=== PATIENT | female | born 1995 | race Hispanic/Latino ===

== ENCOUNTER 2016-08-23 22:13 | Emergency (ER) | payer MEDICAID ==
[~2016-08-23] VITALS: Ht 157.5 cm; Wt 61.4 kg
[~2016-08-23 22:13] MED LIST: COL100L PO; IBUP-1152 PO; PER5 PO
[2016-08-23 22:33] VITALS: BP 131/93; PULSE 104; RESP 18; O2SAT 99
--- NOTE | 2016-08-23 23:22 | ED.REPORT ---
HPI-Abd Pain F Under 40 Date of Service Aug 23, 2016 ED Provider: Pratik Barone DO A 21 year old female with a history of anxiety and presents to the ED complaining of abdominal pain. The pain began at 19:00 today and is concentrated in the left lower quadrant. The pt denies history of ectopic , but states that this feels like it could be a miscarriage. Her last menstrual period was in 07/2016. Nursing Notes Stated Complaint: ABDOMINAL PAIN Chief Complaint: Female Abdominal Pain Nursing Notes Reviewed: Yes Allergies: Coded Allergies: No Known Allergies (Unverified , 08/23/16) Scheduled Docusate Sod-Expunged Drug, Do Not Renew! (Docusate Sod-Expunged Drug, Do Not Renew!) 10 Mg/1 Ml Liqd 100 MG PO BID Scheduled PRN IBUPROFEN-Expunged Drug, Do Not Renew! (IBUPROFEN-Expunged Drug, Do Not Renew!) 800 Mg Tablet 600 MG PO Q6H PRN PRN Oxycodone/APAP-Expunged Drug, Do Not Renew! (Percocet 5/325-Expunged Drug, Do Not Renew!) 1 Ea Tablet 0 EA PO Q3 PRN PRN General Time Seen by MD: 23:22 Chief Complaint Abdominal pain Hx Obtained From: Patient Arrived By: Walk-in Sudden in Onset?: No Onset Occurred: 5 - 8 hours ago Symptom Duration: Since onset Recent Healthcare: Recent doctor visit, Recent hospitalization Similar Sx Previous: No Past Medical History Past Medical History Anxiety Past Surgical History Reports: Smoking History Never Smoker Social History Alcohol Use: Denies alcohol use Drug Use: Denies drug use Occupation lives by self, children are with the father. . works in house cleaning. Ambulatory Status Independent Review of Systems Constitutional: Denies: Chills, Fever Respiratory: Denies: Non-productive cough, Shortness of breath Cardiovascular: Denies: Chest pain GI: Reports: Abdominal pain Musculoskeletal: Denies: Back pain, Neck pain Complete sys rev & neg: except as marked. Physical Exam Initial Vital Signs Vital Signs (First) Date Time Temp Pulse Resp B/P Pulse Ox O2 Delivery O2 Flow Rate FiO2 08/23/16 22:33 37.1 104 18 131/93 99 Room Air Initial VS: Reviewed General/Constitutional: Awake, Alert moderate distress due to pain Respiratory / Chest: Atraumatic, Breath sounds NL, Breath sounds = bilat, No respiratory distress Cardiovascular: Heart rate NL, Regular rhythm, Heart sounds NL Abdomen: Atraumatic, Soft tender LLQ Back: Atraumatic, Full range of motion Head / Eyes: Atraumatic, Normocephalic, PERRL, EOMI ENT: Atraumatic, Airway patent, Mucous membranes moist Skin: Atraumatic, Color NL, No rash, Warm, Dry Neurologic: Oriented X3, Speech NL, No motor deficits, No sensory deficits Neck: Atraumatic, Supple, Full range of motion Upper Extremity / MS: Atraumatic, Full range of motion Lower Extremity / Pelvis / MS: Atraumatic, Full range of motion Psychiatric: Affect NL, Mood NL Interpretation & Diagnostics Interpretation & Diagnostics: US: no signs of ectopic appears to be early intrauterine gestation Lab Results Interpretation Result Diagram: 08/23/16 2355 08/23/16 2355 Test 08/23/16 23:41 08/23/16 23:45 08/23/16 23:55 08/23/16 23:58 Hold Urine Received (Received) Urine Color Yellow (YELLOW) Urine Appearance Clear (CLEAR,HAZY) Urine pH 6.0 (5.0-8.0) Urine Specific [place] 1.025 (1.003-1.035) Urine Protein Negativemg/dL (NEG,TRACE) Urine Glucose (UA) Negativemg/dL (NEGATIVE) Urine Ketones Negativemg/dL (NEGATIVE) Urine Occult Blood Trace (NEGATIVE) Urine Nitrite Negative (NEGATIVE) Urine Bilirubin Negative (NEGATIVE) Urine Urobilinogen Normalmg/dL (NORMAL) Urine Leukocyte Esterase Trace (NEGATIVE) Urine RBC 0-2/hpf (0-2) Urine WBC 6-10/hpf (0-5) Urine Epithelial Cells Many/hpf (NONE-MOD) Urine Crystals None seen (NONE SEEN) Urine Bacteria Few/hpf (NONE-FEW) Urine Hyaline Casts None/lpf (NONE) Urine Granular Casts None seen (NONE SEEN) Urine Waxy Casts None seen (NONE SEEN) Urine Red Blood Cell Casts None seen (NONE SEEN) Urine White Blood Cell Casts None seen (NONE SEEN) Urine Mucus Present (None Seen) Urine Trichomonas None seen (NONE SEEN) Urine Yeast None (NONE SEEN) Urine Culture Reflexed Indicated White Blood Count 9.3th/mm3 (3.8-10.1) Red Blood Count 4.39mil/mm3 (3.90-5.20) Hemoglobin 13.0g/dL (12.0-15.6) Hematocrit 38.0% (35.0-46.0) Mean Corpuscular Volume 86.6fL (81-100) Mean Corpuscular Hemoglobin 29.6pg (27.0-35.0) Mean Corpuscular Hemoglobin Concent 34.2% (32.0-37.0) Red Cell Distribution Width 13.2% (12.3-15.4) Platelet Count 278bil/L (150-400) Neutrophils (%) (Auto) 63.5% (40-74) Lymphocytes (%) (Auto) 28.3% (14-46) Monocytes (%) (Auto) 7.7% (4-12) Eosinophils (%) (Auto) 0.1% (0-5) Basophils (%) (Auto) 0.2% (0-3) Sodium Level 138mEq/L (134-144) Potassium Level 3.5mEq/L (3.5-5.2) Chloride Level 100mEq/L (97-108) Carbon Dioxide Level 22mmol/L (18-29) Blood Urea Nitrogen 6mg/dL (6-20) Creatinine 0.38mg/dL (0.57-1.00) Estimat Glomerular Filtration Rate 303mL/min (>59) Glucose Level 98mg/dL (60-99) Calcium Level 9.5mg/dL (8.5-10.1) Magnesium Level 2.3mg/dL (1.6-2.6) Total Bilirubin 0.2mg/dL (0.0-1.2) Aspartate Amino Transf (AST/SGOT) 17U/L (0-50) Alanine Aminotransferase (ALT/SGPT) 9U/L (0-32) Alkaline Phosphatase 94U/L (25-150) Total Protein 7.9g/dL (6.4-8.4) Albumin 4.5g/dL (3.4-5.0) Lipase 27U/L (13-60) Hold [place] Top Tube Received (Received) HCG Beta Subunit 1829mIU/mL Pulse Oximetry Interpretation Pulse Oximetry Interpretation: 99% on room air Pulse Oximetry: Pulse Ox normal US FAST Exam did not visualize an intrauterine Exam Performed by: ED physician Re-Eval/Medical Decision Source of Hx: Old records Re-Evaluation/Progress : Time of Eval: :17 Patient Status: Condition improved Re-Evaluation/Progress Note: Pt rechecked, whose pain has improved. She is informed of ultrasound and lab results, diagnosis, and plan for discharge. The pt understands and agrees with the plan. All questions are addressed at this time. Counseled Regarding: Diagnosis, Lab results, Need for follow-up, When/why to return to ED Discharge & Departure Primary Impression: Pelvic pain during Disposition: Home Discharge Condition All VS Reviewed: Yes Condition: Stable Patient Instructions: (ED) Additional Instructions: Take Tylenol as directed for pain. Your ultrasound showed no sign of ectopic . We will culture your urine, so this needs to be followed up. Follow up with Dr. Frank this week. Drink plenty of liquids. Return to the emergency department if you develop any new or worsening symptoms. Referrals: [facility] (PCP) Sandro Frank MD Attestation Portions of this note were transcribed by Maye Patiño I, Dr. Barone personally performed the history, physical exam and medical decision-making; I reviewed and confirmed the accuracy of the information in the transcribed note. Signed by: Ramila Lyn, 08/24/16 and 02:20 copies to: Sandro Frank MD; [facility] Pratik Barone DO Aug 23, 2016 23:22 MAYE PATIÑO Aug 23, 2016 23:33
[2016-08-23] MEDS ORDERED: HYDROmorphone 0.5 mg/0.5 mL iSecure Syringe IVPUSH PRN (23:30)
[2016-08-23] MEDS ORDERED: 0.9% Sodium Chloride 1,000 ML IV ONE (23:30)
[2016-08-24 00:09] LABS: BASOPHILS % (AUTO) 0.2 % (0-3); EOSINOPHILS % (AUTO) 0.1 % (0-5); MONOCYTES % (AUTO) 7.7 % (4-12); Mean Corpuscular Hemoglobin 29.6 pg (27.0-35.0); Mean Corpuscular Volume 86.6 fL (81-100); NEUTROPHILS % (AUTO) 63.5 % (40-74); Platelet Count 278 bil/L (150-400)
[2016-08-24 00:37] LABS: Magnesium 2.3 mg/dL (1.6-2.6)
[2016-08-24 01:15] LABS: APPEARANCE,URINE CLEAR (CLEAR,HAZY); COLOR,URINE YELLOW (YELLOW); OCCULT BLOOD,URINE TRACE (NEGATIVE); UROBILINOGEN,URINE NORMAL (NORMAL)
[2016-08-24 01:29] VITALS: BP 124/84; PULSE 88; RESP 18; O2SAT 99
--- NOTE | 2016-08-24 09:10 | DRSVH ---
PROCEDURE: US PELVIC SONOGRAM + TRANSVAGINAL SONOGRAM INDICATIONS: pelvic pain TECHNIQUE: Real-time scanning was performed of the pelvic organs, with image documentation. Additional endovagi nal scanning was necessary due to incomplete visualization of the adnexal and endometrial structures by transabdominal scanning. COMPARISON: None. FINDINGS: (orthogonal measurements) Uterus size: 8.96 cm, 4.79 cm, 6.15 cm, 9.49 cm, 4.68 cm Endometrium thickness: 1.48 cm Right ovary size: 3.48 cm, 3.97 cm, 2.29 cm, Left ovary size: 2.14 cm, 2.98 cm, 2.07 cm, Transabdominal scanning: Limited scanning through the kidneys shows no hydronephrosis. No pathologi c free abdominal or pelvic fluid. Endovaginal scanning: Uterus: Uterus is normal in size and appearance. Endometrium is within normal physiologic limits. Roughly 3 mm sac like fluid collection within the endometrial complex. No double decidual sac sign c an be of sac or pole identified. Ovaries: Within normal physiologic limits, with complex right corpus luteal cyst measuring roughly 2 .5 cm. IMPRESSION: Small saclike fluid collection identified otherwise no definite intra-or extrauterine pre gnancy is identified. Differential considerations would include spontaneous , early intraute rine gestation as well as occult ectopic . Recommend clinical correlation with serial beta- hCGs and/or followup sonographic imaging if indicated. Dictated by: Maged MUNSON Interpreted: Sanam Jin MD on 08/24/2016 at 9:10 Transcribed by: KANG on 08/24/2016 at 9:10 Approved by: Sanam Jin M.D. on 08/24/2016 at 13:36
== END 2016-08-24 01:31 | disposition home or self-care (01) ==
LOC: SED 22:13
DX: O26.891 Other specified pregnancy related conditions, first trimester (principal); R10.2 Pelvic and perineal pain; Z3A.01 Less than 8 weeks gestation of pregnancy
CPT/HCPCS: 36415; 76830; 76856; 80053; 81000; 81025; 83690; 83735; 84702; 85025; 87086; 96361; 96374; 99285; J1170; J7030

== ENCOUNTER 2016-09-09 21:12 | Emergency (ER) | payer MEDICAID ==
[~2016-09-09] VITALS: Ht 157.5 cm; Wt 60.0 kg
[2016-09-09 21:17] VITALS: BP 122/68; PULSE 83; RESP 16; O2SAT 97
[2016-09-09 21:48] LABS: BASOPHILS % (AUTO) 0.2 % (0-3); EOSINOPHILS % (AUTO) 0.4 % (0-5); MONOCYTES % (AUTO) 7.2 % (4-12); Mean Corpuscular Volume 87.6 fL (81-100); NEUTROPHILS % (AUTO) 70.4 % (40-74); Platelet Count 262 bil/L (150-400)
--- NOTE | 2016-09-09 22:08 | ED.REPORT ---
HPI-Abd Pain F Under 40 Date of Service Sep 09, 2016 ED Provider: Cheng Hines MD Patient is a 21 year old female who is approximately 8 weeks presents to the ED with left-sided lower abdominal pain that began earlier today. She describes the pain as burning and stabbing. Patient reports associated nausea and vomiting for the past 2-3 hours. The patient denies any recent trauma or injury to this area. Patient has not had any vaginal bleeding. Patient has been seen at [facility] for OB care and is believed to be 8 weeks . She was seen in the ED on Aug 23 for a similar complaint, with only a small saclike fluid collection identified. Patient denies diarrhea or constipation. Nursing Notes Stated Complaint: ABDOMINAL PAIN Chief Complaint: Female Abdominal Pain Nursing Notes Reviewed: Yes Allergies: Coded Allergies: No Known Allergies (Unverified , 08/23/16) Scheduled Docusate Sod-Expunged Drug, Do Not Renew! (Docusate Sod-Expunged Drug, Do Not Renew!) 10 Mg/1 Ml Liqd 100 MG PO BID Scheduled PRN IBUPROFEN-Expunged Drug, Do Not Renew! (IBUPROFEN-Expunged Drug, Do Not Renew!) 800 Mg Tablet 600 MG PO Q6H PRN PRN Ibuprofen (Ibuprofen) 400 Mg Tablet 400 MG PO QID PRN PRN For Pain Oxycodone/APAP-Expunged Drug, Do Not Renew! (Percocet 5/325-Expunged Drug, Do Not Renew!) 1 Ea Tablet 0 EA PO Q3 PRN PRN General Time Seen by MD: 22:07 Chief Complaint Abdominal pain Hx Obtained From: Patient Arrived By: Walk-in Sudden in Onset?: No Onset Occurred: 1 - 4 hours ago Symptom Duration: Since onset Progression since Onset: Gradually worsening Location: : LLQ Quality: Painful Severity: Current: Moderate Severity: Maximum: Moderate Recent Healthcare: No recent hospitalization, Recent doctor visit Similar Sx Previous: Yes Past Medical History Past Medical History Anxiety previous miscarriages Past Surgical History Reports: Smoking History Never Smoker Social History Alcohol Use: Denies alcohol use Drug Use: Denies drug use Occupation lives by self, children are with the father. . works in house cleaning. Ambulatory Status Independent Review of Systems GI: Reports: Abdominal pain, Nausea, Vomiting, Denies: Constipation, Diarrhea Female: Reports: Pelvic pain, , Denies: Vaginal bleeding - abnl Complete sys rev & neg: except as marked. Physical Exam Initial Vital Signs Vital Signs (First) Date Time Temp Pulse Resp B/P Pulse Ox O2 Delivery O2 Flow Rate FiO2 09/09/16 21:17 36.8 83 16 122/68 97 Room Air Initial VS: Reviewed Head / Eyes: Atraumatic, Normocephalic, PERRL ENT: Conjunctiva normal, No scleral icterus Neck: Supple, Full range of motion Extremities: Vascular intact, Neuro intact Skin: Warm, Dry, No cyanosis Neurologic: Alert, Oriented, Nonfocal Psychiatric: Mood/affect normal, Behavior normal, Normal thought content General/Constitutional: Awake, Alert, No acute distress Respiratory / Chest: Breath sounds NL, Breath sounds = bilat, No respiratory distress, No rales, No rhonchi, No wheezing Cardiovascular: Heart rate NL, Regular rhythm, No murmurs Abdomen: Soft, Non-tender tender over the left iliac crest, superficially, appears to be muscular Back: Painless range of motion Interpretation & Diagnostics Interpretation & Diagnostics: Preliminary IUP: 7 weeks and 4 day living IUP. US PELVIS IMPRESSION: Live intrauterine as described. Probable right ovarian corpus. Radiologist: Nam Moise DO 09/10/2016 - 12:48:56 AM [facility] Lab Results Interpretation Result Diagram: 09/09/162140 Test 09/09/16 21:41 09/09/16 21:49 White Blood Count 8.2th/mm3 (3.8-10.1) Red Blood Count 4.36mil/mm3 (3.90-5.20) Hemoglobin 13.1g/dL (12.0-15.6) Hematocrit 38.2% (35.0-46.0) Mean Corpuscular Volume 87.6fL (81-100) Mean Corpuscular Hemoglobin 30.0pg (27.0-35.0) Mean Corpuscular Hemoglobin Concent 34.3% (32.0-37.0) Red Cell Distribution Width 12.9% (12.3-15.4) Platelet Count 262bil/L (150-400) Neutrophils (%) (Auto) 70.4% (40-74) Lymphocytes (%) (Auto) 21.7% (14-46) Monocytes (%) (Auto) 7.2% (4-12) Eosinophils (%) (Auto) 0.4% (0-5) Basophils (%) (Auto) 0.2% (0-3) HCG Beta Subunit 10175hHQ/mL Hold [place] Top Tube Received (Received) Urine Color Straw (YELLOW) Urine Appearance Clear (CLEAR,HAZY) Urine pH 7.0 (5.0-8.0) Urine Specific [place] 1.010 (1.003-1.035) Urine Protein Negativemg/dL (NEG,TRACE) Urine Glucose (UA) Negativemg/dL (NEGATIVE) Urine Ketones Negativemg/dL (NEGATIVE) Urine Occult Blood Trace (NEGATIVE) Urine Nitrite Negative (NEGATIVE) Urine Bilirubin Negative (NEGATIVE) Urine Urobilinogen Normalmg/dL (NORMAL) Urine Leukocyte Esterase Trace (NEGATIVE) Urine RBC 0-2/hpf (0-2) Urine WBC 0-5/hpf (0-5) Urine Epithelial Cells Moderate/hpf (NONE-MOD) Urine Crystals None seen (NONE SEEN) Urine Bacteria None/hpf (NONE-FEW) Urine Hyaline Casts None/lpf (NONE) Urine Granular Casts None seen (NONE SEEN) Urine Waxy Casts None seen (NONE SEEN) Urine Red Blood Cell Casts None seen (NONE SEEN) Urine White Blood Cell Casts None seen (NONE SEEN) Urine Mucus None seen (None Seen) Urine Trichomonas None seen (NONE SEEN) Urine Yeast None (NONE SEEN) Urine Culture Reflexed Indicated Re-Eval/Medical Decision Med Decision/Clinical Course Med Decision/Clinical Course: 21-year-old female with approximately eight weeks , and some tenderness along her iliac crest on the left. This is easily reproducible and inducible by palpation. This is fairly clearly a muscular strain along the insertion of the abdominal muscles and to the iliac crest. Ultrasound was done tonight and shows a viable IUP at seven weeks four days. She is referred back to her PCP for ongoing [employer]OUS[employer] care. Ibuprofen or Tylenol as needed for pain. No indication of any related issue, but a fairly clearcut exam finding of muscular strain along the iliac crest. Source of Hx: Old records Re-Evaluation/Progress : Time of Eval: 00:05 Patient Status: Condition improved Re-Evaluation/Progress Note: Patient was informed that her ultrasound shows an IUP. Patient understands and agrees with the plan to be discharged home. Discharge instructions and follow-up discussed. All questions were addressed. Return to the ED warnings given. Counseled Regarding: Diagnosis, Lab results, Need for follow-up, When/why to return to ED Discharge & Departure Primary Impression: Injury of muscle of abdomen Additional Impression: Weeks of gestation: less than 8 weeks Qualified Code: Z3A.01 - Less than 8 weeks gestation of Disposition: Home Discharge Condition All VS Reviewed: Yes Condition: Stable Patient Instructions: Muscle Strain (ED) Additional Instructions: Her ultrasound is normal. The source of her pain appears to be along the iliac crest, where the abdominal muscles insert on the bone. Everything appears to be normal with the , and the pain is quite distant from the uterus. Ibuprofen is safe 320 weeks of . You may use Tylenol if she prefer. A heating pad on the sore area may be helpful. Follow-up with your doctor in the office. Referrals: [facility] (PCP) Ramila Attestation Portions of this note were transcribed by Jenny Hector. I, Dr. Hines personally performed the history, physical exam and medical decision-making; I reviewed and confirmed the accuracy of the information in the transcribed note. Signed by: Ramila Whitney, 09/10/2016 0106 copies to: [facility] Cheng Hines MD Sep 09, 2016 22:08 Jenny Hector Sep 09, 2016 22:12
[2016-09-09 22:42] LABS: APPEARANCE,URINE CLEAR (CLEAR,HAZY); COLOR,URINE STRAW (YELLOW); OCCULT BLOOD,URINE TRACE (NEGATIVE); UROBILINOGEN,URINE NORMAL (NORMAL)
[2016-09-10] MEDS ORDERED: IBUP400T22 PO (00:04)
[2016-09-10 00:25] VITALS: BP 114/56; PULSE 80; RESP 16; O2SAT 100
--- NOTE | 2016-09-10 09:52 | DRSVH ---
PROCEDURE: US OB<14 WKS+OB TRANSVAG INDICATIONS: pain, , follow up US recommended OUTSIDE/PRIOR DATING DATA: First dating scan (date and location): 09/09/16. Estimated date of delivery (TESSY) from first dating scan: 04/25/70. TECHNIQUE: Real-time scanning was performed of the fetus and maternal pelvic organs, with image documentation. Endovaginal scanning was also performed to better visualize the fetus and maternal ovaries. COMPARISON: None. 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 No perigestational bleeds. Measurement variability in dating: +/- 4 weeks by LMP, +/- 7 days by mean sac diameter (use before 6 weeks gestation if crown-rump length not able to be measured), +/- 5 days by crown-rump length (6-12 weeks gestation). Maternal organs: Ovaries within normal limits, with right corpus luteal cyst measuring roughly 23 mm . Limited images through the kidneys demonstrate no hydronephrosis. IMPRESSION: 7 week 3 day single living intrauterine gestation. Dictated by: Maged Love RRA Interpreted: Xochitl Epps MD on 09/10/2016 at 9:51 Transcribed by: DARBY on 09/10/2016 at 9:52 Approved by: Xochitl Epps MD, PhD on 09/10/2016 at 15:50
== END 2016-09-10 00:26 | disposition home or self-care (01) ==
LOC: SED 21:12
DX: O9A.211 Injury, poisoning and certain other consequences of external causes complicating pregnancy, first trimester (principal); S39.011A Strain of muscle, fascia and tendon of abdomen, initial encounter; X58.XXXA Exposure to other specified factors, initial encounter; Y93.89 Activity, other specified; Y92.89 Other specified places as the place of occurrence of the external cause; Y99.8 Other external cause status; O21.0 Mild hyperemesis gravidarum; Z3A.08 8 weeks gestation of pregnancy

== ENCOUNTER 2016-11-02 19:32 | Emergency (ER) | payer MEDICAID ==
[~2016-11-02] VITALS: Ht 154.9 cm; Wt 65.0 kg
[~2016-11-02 19:32] MED LIST changes: +IBUP400T22 PO
[2016-11-02 19:44] VITALS: BP 126/88; PULSE 95; RESP 13; O2SAT 98
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
[2016-11-02 22:36] LABS: BASOPHILS % (AUTO) 0.2 % (0-3); EOSINOPHILS % (AUTO) 0.4 % (0-5); MONOCYTES % (AUTO) 6.7 % (4-12); Mean Corpuscular Hemoglobin 29.8 pg (27.0-35.0); Mean Corpuscular Volume 87.5 fL (81-100); NEUTROPHILS % (AUTO) 74.8 % (40-74); Platelet Count 233 bil/L (150-400)
[2016-11-02 23:33] VITALS: BP 122/74; PULSE 72; RESP 18; O2SAT 98
== END 2016-11-02 23:00 | disposition home or self-care (01) ==
LOC: SED 19:32
DX: O9A.211 Injury, poisoning and certain other consequences of external causes complicating pregnancy, first trimester (principal); S39.91XA Unspecified injury of abdomen, initial encounter; S09.93XA Unspecified injury of face, initial encounter; Y08.89XA Assault by other specified means, initial encounter; Y93.89 Activity, other specified; Y92.009 Unspecified place in unspecified non-institutional (private) residence as the place of occurrence of the external cause; Y99.8 Other external cause status; M54.2 Cervicalgia; Z3A.12 12 weeks gestation of pregnancy

== ENCOUNTER 2017-04-20 22:33 | Inpatient (IN) | payer MEDICAID ==
[~2017-04-20] VITALS: Ht 152.4 cm; Wt 75.7 kg
[~2017-04-20 22:33] MED LIST changes: +OMEP20TA86 PO
[2017-04-21] MEDS ORDERED: fentaNYL-PF 50 mCg/mL 2 mL Inj IVPUSH PRN ×2 (00:20→10:00)
[2017-04-21] MEDS ORDERED: Carboprost 250 mCg/mL Inj IM PRN ×3 (00:20→11:25)
[2017-04-21] MEDS ORDERED: Methylergonovine 0.2 mg/mL Inj IM PRN ×3 (00:20→11:25)
[2017-04-21] MEDS ORDERED: Oxytocin 30 Units/500 mL LR 30 UNITS in IV Premix 1 EACH IV PRN ×2 (00:20→11:25)
[2017-04-21] MEDS ORDERED: Penicillin G K Inj 5,000,000 UNITS in Dextrose 5% Minibag Plus 100 ML IV ONE (00:20)
[2017-04-21] MEDS ORDERED: Hemorrhage Kit, Post Partum XX ONE ×3 (00:20→11:25)
[2017-04-21] MEDS ORDERED: Oxytocin 10 Unit/mL Inj IM PRN ×3 (00:20→11:25)
[2017-04-21] MEDS ORDERED: Sodium Chloride LOK Flush 10 mL Syringe IVFLUSH PRN ×2 (00:20→11:25)
[2017-04-21] MEDS: Lactated Ringer's 1,000 ML IV PRN ×2 (00:54→07:46)
[2017-04-21 00:55] LABS: Mean Corpuscular Hemoglobin 29.8 pg (27.0-35.0); Mean Corpuscular Volume 88.2 fL (81-100)
[2017-04-21] MEDS ORDERED: Penicillin G K Inj 3,000,000 UNITS in IV Premix 1 EACH IV SCH (04:30)
[2017-04-21] MEDS ORDERED: Bupivacaine-MPF 0.75% 30 mL Inj ONE (08:54)
[2017-04-21] MEDS ORDERED: Oxytocin 10 Unit/mL Inj ONE (08:54)
[2017-04-21] MEDS ORDERED: Lactated Ringer's 1,000 ML IV SCH ×2 (09:00→11:22)
[2017-04-21] MEDS ORDERED: Sodium Citrate-Citric Acid 15 mL Solution PO SCH (09:00)
--- NOTE | 2017-04-21 09:10 | PCM.HPANE ---
Patient Data Surgeon Admitting Provider:Janet Reyes MD Attending Provider:Janet Reyes MD Primary Care Physician:Chanel Bae MD Other Provider: Reason for Visit Term Labor TERM LABOR Ht/WT & BMI Body Mass Index Allergies Coded Allergies: No Known Allergies (Verified Allergy, Unknown, 04/21/17) Past Anesthesia History Anesthesia History: Denies:: Abnormal Airway, Anesthesia Reactions, Fam Anesthesia Reaction Diabetes History Hx Diabetes?: No MRSA MRSA: No Medications Hypertension Medication: No Home Meds Incl Beta Carlene: No Active Scripts Omeprazole 20 Mg Tablet.dr20 Mg PO BID #60 TABLET Ref 0 Prov:Janet Reyes MD 03/29/17 Ibuprofen 400 Mg [id number] Mg PO QID PRN For Pain #30 TABLET Ref 0 Prov:Cheng Hines MD 09/10/16 IBUPROFEN-Expunged Drug, Do Not Renew! 800 Mg [id number] Mg PO Q6H PRN #50 Prov:Chanel Bae MD 12/14/12 Docusate Sod-Expunged Drug, Do Not Renew! 10 Mg/1 Ml [id number] Mg PO BID 30 Days Prov:Chanel Bae MD 12/14/12 Oxycodone/APAP-Expunged Drug, Do Not Renew! (Percocet 5/325-Expunged Drug, Do Not Renew!)1 Ea Tablet Po Q3 Prn #40 Prov:Chanel Bae MD 12/14/12 History History of ENT Problems?: No HEENT History: Denies:: Abnormal Airway Difficult Intubation Denture Type: None Teeth Condition: Within Normal Limits Hx of Heart Problems?: No Cardiovascular History: Denies:: Congestive Heart Failure Hypertension Hx of Respiratory Problem?: No Respiratory History: Denies:: Tuberculosis Hx Neurologic Problems?: No Hx of GI Problems?: No Hx of Problems?: No Female Hx: Positive for:: Currently Denies:: Endometriosis Pelvic Inflammatory Problems with Breasts? Hx Musculoskeletal Problems?: No Hx of Psycho/Social Problems?: Yes Psycho Social History: Positive for:: Anxiety Hx Depression Denies:: Suicide Attempt Hx Surgeries?: Yes (c-sections) Hx Any Other Health Problems?: No History Blood Transfusions: Denies:: Blood Transfusions Hx Diabetes: No Hx Alcohol Use: NoHx Substance Use: No Smoking Status: Never Smoker Have You Smoked inLast 12 mo: No Stop/Bang ALEX Risk Assessment: Low Risk, <3 Yes Risk Assessment Category Category 1A: Patient has history of documented sleep apnea, and HAS NOT received any narcotic, sedative or anesthesia administration during this stay. Category 1B: Patient has history of documented sleep apnea, and HAS received any narcotic , sedative or anesthesia administration during this stay Category 2: Patient has SUSPECTED Obstructive Sleep Apnea, and HAS received any narcotic , sedative or anesthesia administration during this stay. Category 3: Patient has SUSPECTED Obstructive Sleep Apnea and HAS NOT received narcotic, sedative or anesthesia administration during this stay. Category 4: Outpatient in Procedural Areas with known sleep apnea or who screen positive for High Risk via the STOP/BANG questionnaire. Exam Exam General Appearance: Alert, Oriented X3, Cooperative, No Acute Distress HEENT/AIRWAY: MP 2, Neck Movement (FROM), Mouth Opening (3FB) Lungs: Normal Air Movement Heart: Exam Unremarkable Meds/Labs/Diagnostics Labs Test 04/21/17 00:35 White Blood Count 9.4th/mm3 (3.8-10.1) Red Blood Count 4.33mil/mm3 (3.90-5.20) Hemoglobin 12.9g/dL (12.0-15.6) Hematocrit 38.2% (35.0-46.0) Mean Corpuscular Volume 88.2fL (81-100) Mean Corpuscular Hemoglobin 29.8pg (27.0-35.0) Mean Corpuscular Hemoglobin Concent 33.8% (32.0-37.0) Red Cell Distribution Width 14.9% (12.3-15.4) Platelet Count 203bil/L (150-400) Plan Impression Patient chart reviewed, patient interviewed and anesthestic plan with risks, benefits, and alternatives discussed, and informed consent obtained. NPO per Anesth. Guidelines: Yes ASA Physical Status: ASA1 Normal Healthy Anesthetic Plan: SAB Bene/Risks/Altern/Consents: Yes HP Complete Prior to Induction: Yes Damon Loving MD Apr 21, 2017 09:10
[2017-04-21] MEDS ORDERED: Sodium Citrate-Citric Acid 15 mL Solution ONE (09:13)
[2017-04-21] MEDS ORDERED: CeFAZolin Inj 2 GM in Dextrose 5% 50 ML IV ONE (09:15)
--- NOTE | 2017-04-21 09:59 | HP ---
[address] [address] HISTORY AND PHYSICAL PATIENT: CHEMA RIOS : 1995 MR#: [id number] ADMIT: 04/21/2017 JOB ID: [id number] ADMISSION DIAGNOSIS: Elective repeat section. HISTORY OF PRESENT ILLNESS: The patient is 22-year-old 4, para 2-0-1-2 at 39 weeks by LMP, confirmed by 7 week ultrasound. Had her complicated with the following. 1. Prior section x2. 2. Elective termination of with suction D and C in 2016. 3. Major depression on Prozac. 4. Gastroesophageal reflux disease on Zantac. 5. GBS cultures positive. The patient presented last night with contractions with no cervical changes. Cervix remained at 1 cm dilated, 50% effaced, high presenting part. It did not progress into spontaneous labor. Denied any leakage of fluid, vaginal bleeding, reports movements. PAST OBSTETRICAL HISTORY: 1. 2008, primary section in [place] with unknown scar due to arrest of dilatation. 2. 2012, repeat section with scar revision at 39 weeks in [facility]. 3. 2015, elective termination of with suction D and C. 4. The current . PAST GYNECOLOGIC HISTORY: No history of abnormal Pap smears. No history of STDs. PAST MEDICAL HISTORY: 1. Major depression. 2. Gastroesophageal reflux disease. PAST SURGICAL HISTORY: 1. section x2. 2. Suction D and C for termination. ALLERGIES: No known drug allergies. MEDICATIONS: 1. Prozac 20 mg daily. 2. Zantac 150 mg twice daily. 3. vitamins once daily. ALLERGIES: No known drug allergies. SOCIAL HISTORY: Denied any alcohol consumption. Denied any drugs of abuse. Denied any cigarette smoking. LABORATORIES: O positive, antibody negative, rubella immune, serology nonreactive, hepatitis B surface antigen negative. HIV nonreactive. One hour GCT is 90. Gonorrhea and chlamydia cultures negative. GBS culture is positive. PHYSICAL EXAMINATION: The patient is alert, oriented x3. Vital signs: Blood pressure is 114/73, respirations are 16, pulse is 65, temperature 36.4 degrees centigrade. Pulse ox is 97% on room air. Heart is regular rate and rhythm. Positive S1, S2. Lungs clear to auscultation bilaterally. Abdomen: Gravid uterus, nontender. Positive bowel sounds. Lower extremities: No calf tenderness appreciated bilaterally. Cervical examination: 1 cm dilated, cervix 50% effaced, -4 station, vertex presentation. Same examination like yesterday morning in the office examination. heart tracing is showing baseline of 130 beats per minute, positive accelerations, no decelerations, moderate variability, reactive tracing. ASSESSMENT AND PLAN: The patient is a 22-year-old 4, para 2-0-1-2 at 39 weeks by LMP, confirmed by 7 week ultrasound, prior section x2. Will proceed with a repeat section. Consent signed. All questions answered. Antibiotic prophylaxis. SCDs for DVT prophylaxis. Will revise scar if indicated.
[2017-04-21] MEDS ORDERED: Morphine PF 1 mg/mL 10 mL Inj EPIDURAL ONE (10:00)
[2017-04-21] MEDS ORDERED: Atropine 0.4 mg/mL Inj IV PRN (10:00)
[2017-04-21] MEDS ORDERED: EPHEDrine Sulfate 50 mg/mL Inj IVPUSH PRN (10:00)
[2017-04-21] MEDS ORDERED: LANOlin HPA 7 Gm Ointment TOPICAL PRN (11:25)
[2017-04-21] MEDS ORDERED: Acetaminophen IV 1,000 MG in IV Premix 1 EACH IV PRN (11:25)
[2017-04-21] MEDS ORDERED: diphenhydrAMINE 25 mg Capsule PO PRN (11:25)
--- NOTE | 2017-04-21 11:25 | PCM.ANEP1 ---
Post Anesthesia PACU Phase 1 Assessment Vital Signs stable, see nursing documentation Anesthetic Administered: SAB Level of Alertness: Awake, talking CORONA's with Equal Strength: No Pain: No Nausea or Vomiting: No CV Function & Hydration Stable: Yes Airway Device: Oxygen Delivery: Room Air Lungs: Normal Air Movement Dermatome Level: T10 (Umbilicus) PACU Phase 2 Assessment Complications: No Follow up Care: No Patient Instructions Provided: N/A Damon Loving MD Apr 21, 2017 11:24
[2017-04-21] MEDS ORDERED: Ondansetron 2 mg/mL 2 mL Inj IVPUSH PRN (13:10)
--- NOTE | 2017-04-21 13:38 | OP ---
[address] [address] OPERATIVE REPORT PATIENT: CHEMA RIOS : 1995 MR#: [id number] ADMIT: 04/21/2017 JOB ID: [id number] DATE OF SURGERY: 04/21/2017 SURGEON: Chanel Bae MD SPINNING AND WINDING SUPERVISOR: Janet Reyes MD PREOPERATIVE DIAGNOSIS(ES): A 22-year-old, 4, para 2-0-1-2 at 39 weeks by last menstrual period, confirmed by 7 week ultrasound, with prior section x2, admitted for repeat section. POSTOPERATIVE DIAGNOSIS(ES): A 22-year-old, 4, para 2-0-1-2 at 39 weeks by last menstrual period, confirmed by 7 week ultrasound, with prior section x2, admitted for repeat section. PROCEDURE: Repeat low transverse . ANESTHESIA: Spinal. ESTIMATED BLOOD LOSS: 600 cc. INTRAVENOUS FLUIDS: 1500 cc of crystalloid. URINE OUTPUT: 200 cc of clear urine. COMPLICATIONS: None. PACKS: None. DRAINS: None. CATHETERS: Campoverde catheter in place. SPECIMEN REMOVED: Placenta, disposed. OPERATIVE FINDINGS: 1. A single viable male with Apgars 8/9, weight of 3072 g. 2. Normal fallopian tubes and ovaries bilaterally. 3. Mild intra-abdominal adhesions. DETAILS OF OPERATION: Procedure risks, benefits, alternatives of procedure discussed with the patient. Informed consent signed. Patient moved to the OR with IV running. After spinal anesthesia found to be adequate, the patient was placed in dorsal supine position with a leftward tilt. Had vaginal and abdominal prep and draped in the normal sterile fashion. After time-out procedure was completed, skin incision was made with a scalpel. Pfannenstiel skin incision made scalpel 2 cm above symphysis pubis and carried down to underlying rectus fascia with the scalpel. The fascia incised in the midline with a scalpel. Bovie cutting was used at the level of the subcutaneous tissue for some adhesions from prior surgeries. The fascial incision extended bilaterally with Palafox scissors. Inferior aspect of fascial incision grasped with Stephanie clamps, elevated, tented up, rectus muscle dissected off sharply and bluntly with scissors. Attention turned to the superior aspect of fascial incision, which in similar fashion was grasped with Stephanie clamps, elevated, tented up, rectus muscle dissected off sharply and bluntly using scissors. Rectus muscles were then in midline. Peritoneum identified, entered under direct visualization with traction counter traction. The peritoneal incision extended superiorly and inferiorly with good visualization of the bladder. Bladder blade inserted. The vesicouterine peritoneum identified, entered sharply with the Metzenbaum scissors. Bladder flap created digitally. Bladder blade reinserted. Uterus incised in midline with a scalpel. Lower uterine segment was noted to be paper-thin. The uterine incision extended with bandage scissors. Clear fluid obtained. Infant head delivered in left occipital anterior position followed by shoulders and rest of the body. Delayed cord clamping allowed for 60 seconds. Cord clamped and cut. handed off to awaiting nurse. Placenta was expressed. Uterus exteriorized and cleared of all clots and debris. Omental adhesions to the anterior surface of the uterus were lysed with chromic suture ligation and scissors with some Bovie coagulation in certain areas to achieve hemostasis. All the omental adhesions to anterior uterine surface was released completely. Attention turned to the hysterotomy that was repaired in two layers, first a continuous locked fashion of 0-Vicryl suture, second layer of imbrication with 0-Vicryl suture. Good hemostasis assured. Inspection of the fallopian tubes and ovaries bilaterally showed normal anatomy. Suction irrigation confirmed hemostasis. Uterus returned back to the abdomen. All instruments removed from the patient's abdomen. Muscle approximated in midline with interrupted sutures of 2-0 chromic. Fascia closed in continuous fashion of 0-Vicryl suture. Subcutaneous layer was closed with interrupted sutures of 2-0 chromic. The contracted scar in the middle was released with Bovie cutting and coagulation. This released the edges of the skin in the center of the fascial skin incision that was closed with 4-0 Vicryl in a subcuticular fashion followed by Dermabond and Steri-Strips. Pressure dressing applied. Patient tolerated the procedure well. Sponge, lap, needle, instrument counts were correct x2. Mom and baby recovering and moved to the Labor and Delivery room in stable condition. Good hemostasis assured. Dr. Bae was present and scrubbed for the entire procedure.
[2017-04-21] MEDS ORDERED: Promethazine Inj 25 MG in Dextrose 5%-Pha MIX 50 ML IV ONE (14:55)
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
[2017-04-21] MEDS: oxyCODONE-Acetamin 5-325 mg Tablet PO PRN (22:32)
[2017-04-22] MEDS: oxyCODONE-Acetamin 5-325 mg Tablet PO PRN ×4 (03:53→20:19)
[2017-04-22 07:30] LABS: Mean Corpuscular Hemoglobin 29.4 pg (27.0-35.0); Mean Corpuscular Volume 89.9 fL (81-100)
[2017-04-22] MEDS: Ascorbic Acid 500 mg Tablet PO SCH (10:27)
--- NOTE | 2017-04-22 13:03 | PROG NOTE ---
[address] [address] PROGRESS NOTE PATIENT: CHEMA RIOS : 1995 MR#: [id number] ADMIT: 04/21/2017 JOB ID: [id number] DATE: 04/22/2017 SUBJECTIVE: The patient is doing well this morning. Pain controlled with medication. with no difficulties. Ambulating, voiding, tolerating p.o. intake. OBJECTIVE: Vital signs are 109/50 for blood pressure. Respirations are 16. Pulse is 89. Temperature 36.7 degrees centigrade. Heart is regular rate and rhythm. Positive S1, S2. Lungs clear to auscultation bilaterally. Abdomen firm. Uterine fundus palpated at the level of the umbilicus. Incision is clean, dry, and intact with Steri-Strips in place. Appropriate tenderness around the incision. Perineum: No active bleeding. Lower extremities: No calf tenderness appreciated bilaterally. LABORATORY: H and H this morning is 10.2 and 31.2, platelets 167, white blood count 8.8. ASSESSMENT: The patient is 22 years old, 4, para 3-0-1-3, postop day #1 status post repeat low transverse . Afebrile, with stable vital signs. PLAN: 1. Anemia: Iron and vitamin C supplementation started. 2. Continue postop care.
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
[2017-04-22] MEDS: hydrOXYzine Pamoate 25 mg Capsule PO PRN (22:43)
[2017-04-23] MEDS: oxyCODONE-Acetamin 5-325 mg Tablet PO PRN ×4 (00:17→12:31)
[2017-04-23] MEDS: hydrOXYzine Pamoate 25 mg Capsule PO PRN (07:22)
[2017-04-23] MEDS: Ascorbic Acid 500 mg Tablet PO SCH (08:22)
--- NOTE | 2017-04-23 12:44 | PCM.DIOB ---
Obstetrical Disch Instruction Date of Service: Apr 23, 2017 Dates of Hospitalization Date of Hospital Admission Apr 21, 2017 at 00:20 Providers Admitting Physician: Chanel Bae MD Primary Care Physician: Chanel Bae MD Attending Physician: Janet Reyes MD Discharge Diagnosis Discharge Diagnosis POD#2 S/P RLTCS, anemia Problems: Diet Discharge Diet: No restrictions Activity Discharge Activity-General: Pelvic Rest for 6 weeks, No lifting >10 pounds for 4-6 weeks Dressing and Incisional Care Dressing Care: Keep dressing clean, dry & intact Hygiene: May shower Follow Up Plan Follow-up appointment: Weeks (2) Call your provider for: Fever or Chills, Shortness of breath, Heavy vaginal bleeding, Other (excessive pain not controlled with pain medication, abnromal wound discharge.) Chanel Bae MD Apr 23, 2017 12:44
[2017-04-23] MEDS ORDERED: OXYC1TAB24 PO (12:48)
[2017-04-23] MEDS ORDERED: FERR-74 PO (12:48)
[2017-04-23] MEDS ORDERED: PROZ20 PO (12:48)
[2017-04-23] MEDS ORDERED: DOCU-41 PO (12:48)
[2017-04-23] MEDS ORDERED: Ascorbic Acid PO (12:48)
[2017-04-23] MEDS ORDERED: IBUP-1827 PO (12:48)
--- NOTE | 2017-04-24 04:56 | DIS ---
[address] [address] DISCHARGE SUMMARY PATIENT: CHEMA RIOS : 1995 MR#: [id number] ADMIT: 04/21/2017 JOB ID: [id number] DIS: 04/23/2017 DATE OF ADMISSION: 04/21/2017 DATE OF DISCHARGE: 04/23/2017 REASON FOR ADMISSION: Admitted for elective repeat section. DISCHARGE DIAGNOSIS: 1. Postoperative day number two, status post repeat low transverse section. 2. Anemia. For further details, please refer to the fully dictated notes. On the day of discharge, the patient had no complaints. Voiding, ambulating, tolerating p.o. intake, with no difficulties. PHYSICAL EXAMINATION: Vital signs are 111/61 for blood pressure, respirations are 18, pulse is 93, temperature 36.8 degrees centigrade. Pulse ox is 98% on room air. Heart: Regular rate and rhythm. Positive S1, S2. Lungs: Clear to auscultation bilaterally. Abdomen: Firm. Uterine fundus palpated at 1 cm below the umbilicus. Incision is clean, dry and intact with appropriate tenderness around the incision. Perineum: No active bleeding. Lower extremities: No calf tenderness appreciated bilaterally. H and H on postop day #1 was 10.2 and 31.2 and patient was started on iron supplementation with vitamin C. DISCHARGE PLAN: The patient will be discharged home in stable condition. Will follow up with Dr. Bae in the office in two weeks. Instructed to have nothing in the vagina for six weeks. No heavy lifting more than baby's weight. Instructed to call for fever, chills, severe abdominal pain no controlled with medication, heavy vaginal bleeding, abnormal wound discharge or any other concerning symptoms. MEDICATIONS: The patient will be discharged home on the following medications: 1. Percocet 5/325, 1 tablet with every 4 hours as needed for severe pain. 2. Ibuprofen 600 mg every 6 hours as needed for moderate pain. 3. Colace 100 mg twice daily. 4. Ferrous sulfate 325 mg twice daily. 5. Vitamin C 500 mg twice daily. 6. Prozac 20 mg once daily for her depression. All the above discussed in detail with the patient who agreed to the plan.
[2020-04-21] MEDS ORDERED: Oxytocin 10 Unit/mL Inj ONE (07:59)
[2020-04-21] MEDS ORDERED: Morphine PF 1 mg/mL 10 mL Inj ONE (07:59)
[2020-04-21] MEDS ORDERED: Ondansetron 2 mg/mL 2 mL Inj ONE (07:59)
[2020-04-21] MEDS ORDERED: Phenylephrine 10,000 mCg/mL Inj ONE (07:59)
[2020-04-21] MEDS ORDERED: fentaNYL-PF 50 mCg/mL 2 mL Inj ONE (07:59)
== END 2017-04-23 15:14 | disposition home or self-care (01) | DRG 766 ==
LOC: FBCO 22:33 → FBC 04-21 00:20
PROVIDERS: ADMIT Obstetrics & Gynecology; ATTEND Obstetrics & Gynecology
PROC: 10D00Z1 Extraction of Products of Conception, Low, Open Approach (ICD-10-PCS; principal; 2017-04-21 09:25)
DX: O34.211 Maternal care for low transverse scar from previous cesarean delivery (principal); F32.9 Major depressive disorder, single episode, unspecified; O99.824 Streptococcus B carrier state complicating childbirth; Z3A.39 39 weeks gestation of pregnancy; O99.343 Other mental disorders complicating pregnancy, third trimester; K21.9 Gastro-esophageal reflux disease without esophagitis; O99.613 Diseases of the digestive system complicating pregnancy, third trimester; Z37.0 Single live birth; O99.03 Anemia complicating the puerperium